=== PATIENT | male | born 1985 | race Caucasian/White ===

== ENCOUNTER 2016-05-15 14:04 | Emergency (ER) | payer OTHER ==
[~2016-05-15] VITALS: Ht 172.7 cm; Wt 76.0 kg
[2016-05-15 14:50] VITALS: Ht 172.7 cm; Wt 76.0 kg
[2016-05-15] MEDS ORDERED: IBUPROFEN 800 MG TAB PO ONE (18:00)
--- NOTE | 2016-05-15 18:16 | RADRPT ---
PROCEDURE: XR Shoulder. CLINICAL INDICATION: Right shoulder pain after trauma TECHNIQUE: 3 views of the right shoulder are available for review. COMPARISON: None available FINDINGS: There is normal mineralization and alignment of the bones of the right shoulder. No acute fracture or dislocation is identified. The acromioclavicular joint is intact. The visualized portions of th e right chest wall are grossly unremarkable. The soft tissues are within normal limits. IMPRESSION: 1. Unremarkable right shoulder series without evidence of fracture or dislocation. RPTAT: [facility] .Marv Blair MD, MD Date Time Electronically viewed and signed by .Marv Blair MD, MD on 05/15/2016 18:16 .B/
[2016-05-15] MEDS ORDERED: TRAM50TA2 PO (18:23)
[2016-05-15] MEDS ORDERED: KET2CR15 TOP (18:23)
--- NOTE | 2016-05-15 18:43 | ERD ---
ER Documentation Chief Complaint Date/Time DATE: 05/15/16 TIME: 18:39 Chief Complaint right shoulder pain x 2 days HPI Patient is a 31-year-old male who presents with right shoulder pain that began yesterday. Patient states he was playing some sort of game where he had the punch a punching bag and he states that he punched it is hard as he could and he now developed pain in his right anterior shoulder. He denies any numbness or tingling. Pain is worse with movement. He took ibuprofen yesterday with some relief of his pain. Patient is also complaining of an itchy rash she has had in his bilateral upper extremities as well as back for several weeks it comes on and off. He notices that it comes on usually after he drinks alcohol and then it usually resolves on its own. Denies fever. Denies any new irritants. Denies any lip or tongue swelling or respiratory distress. ROS All systems reviewed and are negative except as per history of present illness. Medications Home Meds Active Scripts Tramadol HCl (Tramadol HCl) 50 Mg Tablet, 50 MG PO Q4 Y for PAIN, #20 TAB Prov:YAMINI CRUZ PA-C 05/15/16 Ketoconazole* (Ketoconazole* 2% Cream (15gm)) 1 Applic Cr, 1 APPLIC TOP DAILY, # 30 GM Prov:YAMINI CRUZ PA-C 05/15/16 Allergies Allergies: Coded Allergies: No Known Allergy (Unverified , 05/15/16) PMhx/Soc Medical and Surgical Hx: pt denies Medical Hx, pt denies Surgical Hx Hx Alcohol Use: Yes (drinks socially) Hx Substance Use: Yes (marijuana to sleep) Hx Tobacco Use: Yes Smoking Status: Current every day smoker FmHx Family History: No diabetes Physical Exam Vitals Vital Signs Date Time Temp Pulse Resp B/P Pulse Ox O2 Delivery O2 Flow Rate FiO2 05/15/16 14:50 98.0 105 18 112/78 98 Physical Exam General: well developed, well nourished, alert, nontoxic, no distress Head: normocephalic, atraumatic Neck: Supple, nontender, no lymphadenopathy, no midline tenderness Respiratory: Clear to auscaultation bilaterally, speaks in full sentences, no use of accesory muscles or labored breathing, no rales, ronchi, or wheezing Cardiovascular: RRR, No murmurs Back: no midline tenderness, no step offs or bony abnormalities, sensation to light touch in tact Extremities: Right shoulder: Tenderness to palpation over the anterior shoulder , full range of motion active and passively, no bony antibodies, sensation to light touch intact, no tenting over the clavicle. Skin: Multiple small well-demarcated scaly areas of hypopigmentation on the right upper extremity as well as upper neck and back, not raised Results 24 hrs Current Medications Medications (Trade) Dose Ordered Sig/Ranjith Route PRN Reason Start Time Stop Time Status Last Admin Dose Admin Ibuprofen (Motrin) 800 mg ONCE ONCE PO 05/15/16 18:00 05/15/16 18:01 DC 05/15/16 17:42 Procedures/MDM 31-year-old male presents with shoulder pain. X-ray was negative. Patient was given prescription for pain medication. Patient also has rash that appears to be most consistent with tinea versicolor. He will be discharged with ketoconazole cream as well as dermatology outpatient follow-up. Recommended this patient follow up with her primary care doctor within 48 hours or return to the emergency room for any worsening of symptoms. However this time I do believe there is suitable for outpatient management. I answered all their questions and they agreed with the plan and were discharged home. Departure Diagnosis: Primary Impression: Tinea versicolor Additional Impression: Shoulder sprain Condition: Stable Patient Instructions: Self-Care for Skin Rashes, Shoulder Contusion Referrals: NICOLE BOJORQUEZ MD,VIVI STEINER MD,JARED ESTEBAN MD, MD,MAVERICK MCKEON Additional Instructions: Call your primary care doctor TOMORROW for an appointment during the next 1-2 days.See the doctor sooner or return here if your condition worsens before your appointment time. YAMINI CRUZ PA-C May 15, 2016 18:43
[2016-05-15 19:03] VITALS: BP 107/55; PULSE 64; RESP 18; TEMP 98.3
== END 2016-05-15 19:03 | disposition home or self-care (01) ==
LOC: FTE 14:04
DX: B36.0 Pityriasis versicolor (principal); S43.401A Unspecified sprain of right shoulder joint, initial encounter; F17.210 Nicotine dependence, cigarettes, uncomplicated; W22.8XXA Striking against or struck by other objects, initial encounter; Y92.89 Other specified places as the place of occurrence of the external cause
CPT/HCPCS: 73030; Z7502; Z7610